=== PATIENT | female | born 1995 | race Caucasian/White ===

== ENCOUNTER 2016-08-27 11:56 | Emergency (ER) | payer MEDICAID ==
[~2016-08-27] VITALS: Ht 157.5 cm; Wt 44.0 kg
[2016-08-27 12:04] VITALS: Ht 157.5 cm; Wt 44.0 kg
[2016-08-27 13:10] LABS: ADD SCAN DIFF NO
[2016-08-27 13:13] LABS: BASOPHILS % 0.3 % (0.0-2.0); EOSINOPHILS % 0.3 % (0.0-7.0); HEMATOCRIT 39.9 % (37.0-47.0); HEMOGLOBIN 13.2 g/dl (12.0-16.0); LYMPHOCYTES # 1.8 10^3/ul (0.8-2.9); LYMPHOCYTES % 23.2 % (18.0-55.0); MEAN CORPUSCULAR HEMOGLOBIN 30.1 pg (29.0-33.0); MEAN CORPUSCULAR HGB CONC 33.1 g/dl (32.0-37.0); MEAN CORPUSCULAR VOLUME 90.9 fl (72.0-104.0); MEAN PLATELET VOLUME 10.7 fl (7.4-10.4); MONOCYTE # 0.5 10^3/ul (0.3-0.9); MONOCYTES % 7.2 % (0.0-13.0); NEUTROPHIL # 5.2 10^3/ul (1.6-7.5); NEUTROPHILS % 68.7 % (30.0-74.0); PLATELET COUNT 245 10^3/UL (140-415); RED BLOOD COUNT 4.39 10^6/ul (4.20-5.40); RED CELL DISTRIBUTION WIDTH 12.6 % (11.5-14.5); WHITE BLOOD COUNT 7.5 10^3/ul (4.8-10.8)
[2016-08-27 13:39] LABS: ALANINE AMINOTRANSFERASE 20 IU/L (13-69); ALBUMIN 5.5 g/dl (3.3-4.9); ALBUMIN/GLOBULIN RATIO 1.83; ALKALINE PHOSPHATASE 60 IU/L (42-121); ANION GAP 15 (8-16); ASPARTATE AMINO TRANSFERASE 21 IU/L (15-46); BILIRUBIN,INDIRECT 0.8 mg/dl (0-1.1); BILIRUBIN,TOTAL 0.8 mg/dl (0.2-1.3); BLOOD UREA NITROGEN 18 mg/dl (7-20); CALCIUM 9.9 mg/dl (8.4-10.2); CARBON DIOXIDE 24 mmol/L (21-31); CHLORIDE 103 mmol/L (97-110); CREATININE 0.73 mg/dl (0.44-1.00); GLUCOSE 88 mg/dl (70-220); SODIUM 138 mmol/L (135-144); TOTAL PROTEIN 8.5 g/dl (6.1-8.1)
[2016-08-27 13:43] LABS: ACETAMINOPHEN < 10.0 ug/ml (10.0-30.0); ETHANOL < 10.0 mg/dl; SALICYLATE < 1.0 mg/dl (5.0-30.0)
[2016-08-27 13:52] LABS: BARBITURATES Negative (NEGATIVE); BENZODIAZEPINES Negative (NEGATIVE); CANNABINOIDS Negative (NEGATIVE)
[2016-08-27 13:53] LABS: COCAINE Negative (NEGATIVE); OPIATES Negative (NEGATIVE)
--- NOTE | 2016-08-27 14:26 | ERA ---
ER Documentation Chief Complaint Date/Time DATE: 08/27/16 TIME: 14:23 Chief Complaint Sent from MD for evaluation HPI Patient is a 21-year-old female with no medical problems who presents with depression. She is having junk depression after having her baby 8 months ago. She feels suicidal thoughts and says that she has a plan to "overdose on pills" . She has no thoughts of hurting the baby however and is only complaining about feeling of hurting herself. This is her first baby. She lost her job after having . She is breast-feeding. Upon review of old medical records this is the patient's first visit to the emergency department. She does not know the name of her primary doctor. ROS All systems reviewed and are negative except as per history of present illness. Medications Home Meds No Active Prescriptions or Reported Meds Allergies Allergies: Coded Allergies: No Known Allergy (Unverified , 08/27/16) PMhx/Soc History of Surgery: No Anesthesia Reaction: No Hx Neurological Disorder: No Hx Respiratory Disorders: No Hx Cardiac Disorders: No Hx Psychiatric Problems: No Hx Miscellaneous Medical Probl: No Hx Alcohol Use: No Hx Substance Use: No Hx Tobacco Use: No Smoking Status: Never smoker FmHx Family History: diabetes Physical Exam Vitals Vital Signs Date Time Temp Pulse Resp B/P Pulse Ox O2 Delivery O2 Flow Rate FiO2 08/27/16 12:04 98.5 104 20 105/64 99 Physical Exam Const: Depressed affect Head: Atraumatic Eyes: Normal Conjunctiva ENT: Normal External Ears, Nose and Mouth. Neck: Full range of motion..~ No meningismus. Resp: Clear to auscultation bilaterally Cardio: Regular rate and rhythm, no murmurs Abd: Soft, non tender, non distended. Normal bowel sounds Skin: No petechiae or rashes Back: No midline or flank tenderness Ext: No cyanosis, or edema Neur: Awake and alert Psych: Depressed affect with positive suicidal ideation with plan to overdose , negative for homicidal ideation Result Diagram: 08/27/16 1300 08/27/16 1300 Results 24 hrs Laboratory Tests Test 08/27/16 13:00 08/27/16 13:20 White Blood Count 7.510^3/ul Red Blood Count 4.3910^6/ul Hemoglobin 13.2g/dl Hematocrit 39.9% Mean Corpuscular Volume 90.9fl Mean Corpuscular Hemoglobin 30.1pg Mean Corpuscular Hemoglobin Concent 33.1g/dl Red Cell Distribution Width 12.6% Platelet Count 08061^3/UL Mean Platelet Volume 10.7fl Neutrophils % 68.7% Lymphocytes % 23.2% Monocytes % 7.2% Eosinophils % 0.3% Basophils % 0.3% Nucleated Red Blood Cells % 0.0/100WBC Neutrophils # 5.210^3/ul Lymphocytes # 1.810^3/ul Monocytes # 0.510^3/ul Eosinophils # 0.010^3/ul Basophils # 0.010^3/ul Nucleated Red Blood Cells # 0.010^3/ul Sodium Level 138mmol/L Potassium Level 4.0mmol/L Chloride Level 103mmol/L Carbon Dioxide Level 24mmol/L Anion Gap 15 Blood Urea Nitrogen 18mg/dl Creatinine 0.73mg/dl Glucose Level 88mg/dl Calcium Level 9.9mg/dl Total Bilirubin 0.8mg/dl Direct Bilirubin 0.00mg/dl Indirect Bilirubin 0.8mg/dl Aspartate Amino Transf (AST/SGOT) 21IU/L Alanine Aminotransferase (ALT/SGPT) 20IU/L Alkaline Phosphatase 60IU/L Total Protein 8.5g/dl Albumin 5.5g/dl Globulin 3.00g/dl Albumin/Globulin Ratio 1.83 Salicylates Level < 1.0mg/dl Acetaminophen Level < 10.0ug/ml Ethyl Alcohol Level < 10.0mg/dl Urine Opiates Screen Negative Urine Barbiturates Negative Urine Amphetamines Screen Negative Urine Benzodiazepines Screen Negative Urine Cocaine Screen Negative Urine Cannabinoids Negative Procedures/MDM Patient is a 21-year-old female who presents with depression. Given her suicidal thoughts with plan to overdose I am concerned that she is a high risk for potential overdose. She is pending a psychiatric evaluation at this time. She had laboratory studies and a urine drug screen done and is now medically clear for psychiatric transfer if needed. I have asked Dr. Garcia from psychiatry to give recommendations for medications following her evaluation of the patient. She may require transfer to inpatient psych for treatment for depression to protect herself and her baby. Departure Diagnosis: Primary Impression: Post depression Condition: JULIÁN Connor MD Aug 27, 2016 14:26
[2016-08-27 14:51] LABS: ADD UMIC YES; UR ASCORBIC ACID NEGATIVE (NEGATIVE); UR BACTERIA FEW /HPF (NONE SEEN); UR BILIRUBIN (Dip) NEGATIVE (NEGATIVE); UR BLOOD (Dip) 3+ mg/dL (NEGATIVE); UR CLARITY TURBID (CLEAR); UR COLOR AMBER (YELLOW); UR GLUCOSE (Dip) NEGATIVE (NEGATIVE); UR KETONES (Dip) NEGATIVE (NEGATIVE); UR LEUKOCYTE ESTERASE (Dip) NEGATIVE Leu/ul (NEGATIVE); UR MUCUS MODERATE /HPF (NONE SEEN); UR NITRITE (Dip) NEGATIVE (NEGATIVE); UR RBC 2 /HPF (0-5); UR SPECIFIC GRAVITY (Dip) 1.029 (1.003-1.030); UR SQUAMOUS EPITHELIAL CELL FEW /HPF (FEW); UR TOTAL PROTEIN (Dip) NEGATIVE (NEGATIVE); UR UROBILINOGEN (Dip) NEGATIVE (NEGATIVE)
--- NOTE | 2016-08-27 17:26 | PSY ---
Date/Time of Note Date/Time of Note DATE: 08/27/16 TIME: 17:20 Psychiatric Subjective Eval Subjective Evaluation Patient location: emergency Chief Complaint: Sent from MD for evaluation History of present illness Spoke with Dr Villegas : 21 yo female with 8 mo baby presents for depression and Si. I logged on the screen: the patient was in a hallway. behavioral consultant notified me, the pt is [place] speaking only. I asked him to contact an RN in order to get an trench trimmer fine and a private room. In 15 minutes I logged on the screen and the robot was in an an empty hallway; I called ER and asked to assist me in arranging consultation. In 15 minutes I logged on the screen. The robot was in another patient's room. I called ED again in 15 minutes and was told to log on the screen in 10 minutes. In 10 minutes the robot was in an empty hallway. I tried 3 more times - the robot in an empty hallway. 352 pm I called again and requested to speak with Dr Villegas, was notified , he left and now it is Dr Christopher. I requested to speak with dr Balderrama. I was placed on hold for 4 minutes and then someone hang up on me. Please kindly call back then the patient will be in a private room and an interpreting services will be available Medical history Problems Medical Problems: (1) Post depression Status: Acute Allergies: Coded Allergies: No Known Allergy (Unverified , 08/27/16) Psychiatric Objective Eval Mental Status Examination: Laboratory Results Laboratory Tests Test 08/27/16 13:00 08/27/16 13:20 White Blood Count 7.510^3/ul Red Blood Count 4.3910^6/ul Hemoglobin 13.2g/dl Hematocrit 39.9% Mean Corpuscular Volume 90.9fl Mean Corpuscular Hemoglobin 30.1pg Mean Corpuscular Hemoglobin Concent 33.1g/dl Red Cell Distribution Width 12.6% Platelet Count 94647^3/UL Mean Platelet Volume 10.7fl Neutrophils % 68.7% Lymphocytes % 23.2% Monocytes % 7.2% Eosinophils % 0.3% Basophils % 0.3% Nucleated Red Blood Cells % 0.0/100WBC Neutrophils # 5.210^3/ul Lymphocytes # 1.810^3/ul Monocytes # 0.510^3/ul Eosinophils # 0.010^3/ul Basophils # 0.010^3/ul Nucleated Red Blood Cells # 0.010^3/ul Sodium Level 138mmol/L Potassium Level 4.0mmol/L Chloride Level 103mmol/L Carbon Dioxide Level 24mmol/L Anion Gap 15 Blood Urea Nitrogen 18mg/dl Creatinine 0.73mg/dl Glucose Level 88mg/dl Calcium Level 9.9mg/dl Total Bilirubin 0.8mg/dl Direct Bilirubin 0.00mg/dl Indirect Bilirubin 0.8mg/dl Aspartate Amino Transf (AST/SGOT) 21IU/L Alanine Aminotransferase (ALT/SGPT) 20IU/L Alkaline Phosphatase 60IU/L Total Protein 8.5g/dl Albumin 5.5g/dl Globulin 3.00g/dl Albumin/Globulin Ratio 1.83 Salicylates Level < 1.0mg/dl Acetaminophen Level < 10.0ug/ml Ethyl Alcohol Level < 10.0mg/dl Urine Color GIANFRANCO Urine Clarity TURBID Urine pH 6.0 Urine Specific [place] 1.029 Urine Ketones NEGATIVEmg/dL Urine Nitrite NEGATIVEmg/dL Urine Bilirubin NEGATIVEmg/dL Urine Urobilinogen NEGATIVEmg/dL Urine Leukocyte Esterase NEGATIVELeu/ul Urine Microscopic RBC 2/HPF Urine Microscopic WBC 4/HPF Urine Squamous Epithelial Cells FEW/HPF Urine Bacteria FEW/HPF Urine Mucus MODERATE/HPF Urine Hemoglobin 3+mg/dL Urine Glucose NEGATIVEmg/dL Urine Total Protein NEGATIVEmg/dl Urine Opiates Screen Negative Urine Barbiturates Negative Urine Amphetamines Screen Negative Urine Benzodiazepines Screen Negative Urine Cocaine Screen Negative Urine Cannabinoids Negative ZOEY MOTT MD Aug 27, 2016 17:26
[2016-08-28] MEDS ORDERED: ZOLPIDEM 5 MG TAB PO PRN ×2 (00:30)
[2016-08-28 06:21] VITALS: BP 109/55; PULSE 122; RESP 18; TEMP 99
[2016-08-28] MEDS ORDERED: ACETAMINOPHEN 500 MG TAB PO ONE (06:25)
== END 2016-08-28 07:47 | disposition short-term general hospital (02) ==
LOC: FTE 11:56 → E/R 08-28 07:47
DX: F32.9 Major depressive disorder, single episode, unspecified (principal)
CPT/HCPCS: 36415; 80053; 80306; 80307; 81001; 85025; Z7502; Z7610; 99285